=== PATIENT | male | born 1950 | race African-American/Black ===

== ENCOUNTER → 2018-12-08 | Day surgery (SDC) | payer MEDICARE ==
--- NOTE | 2018-12-01 11:15 | Diagnostic Imaging Report ---
EXAMINATION: CHEST 2 VIEWS INDICATION: Pre-operative COMPARISON: None FINDINGS: LINES/TUBES:None LUNGS:The lungs are well-inflated. No focal consolidation or pulmonary edema. PLEURA:No pleural effusion or pneumothorax. MEDIASTINUM:The cardiomediastinal silhouette appears normal in size and shape. Atherosclerotic calcifications of the thoracic aorta. BONES/SOFT TISSUES:No acute osseous injury. ABDOMEN:No free air under the diaphragm. IMPRESSION: No focal pneumonia or pulmonary edema. Signed by: Ewa Desai MD on 12/01/2018 11:11 AM
[2018-12-01 11:37] LABS: BASOPHILS % 0.2 % (0.0-1.0); EOSINOPHILS # (AUTO) 0.1 (0.0-0.4); EOSINOPHILS % 1.3 % (0.0-6.0); HEMATOCRIT 37.4 % (38.2-49.6); HEMOGLOBIN 12.5 g/dL (14.0-18.0); LYMPHOCYTES # (AUTO) 1.9 (1.0-3.2); LYMPHOCYTES % 40.8 % (18.0-39.1); MEAN CORPUSCULAR HEMOGLOBIN 30.6 pg (28-32); MEAN CORPUSCULAR HGB CONC 33.4 g/dL (31-35); MEAN CORPUSCULAR VOLUME 91.7 fL (81-99); MONOCYTES # (AUTO) 0.5 (0.2-0.8); MONOCYTES % 10.4 % (4.4-11.3); NEUTROPHILS # (AUTO) 2.2 (2.1-6.9); NEUTROPHILS % 46.9 % (38.7-80.0); PLATELET COUNT 222 x10e3/uL (140-360); RED BLOOD COUNT 4.08 x10e6/uL (4.3-5.7); RED CELL DISTRIBUTION WIDTH 14.2 % (11.7-14.4)
[2018-12-01 11:51] LABS: INR 0.89; PROTHROMBIN TIME 12.5 seconds (11.9-14.5)
[2018-12-01 12:00] LABS: BLOOD UREA NITROGEN 17 mg/dL (7-26); BUN/CREATININE RATIO 15 (6-25); CALCIUM 9.7 mg/dL (8.4-10.2); CARBON DIOXIDE 23 mmol/L (22-29); CHLORIDE 103 mmol/L (98-107); CREATININE, SERUM 1.17 mg/dL (0.72-1.25); EST GLOMERULAR FILTRATION RATE > 60 ML/MIN (60-); GLUCOSE 93 mg/dL (74-118); SODIUM 138 mmol/L (136-145)
[~2018-12-08] MED LIST: ATORVASTATIN CA20 MG PO; BENADRYL25 M1; DEXAMETHASONE SOD PHOS INJ 4 MG/ML VIAL ONE; FENTANYL CITRATE/PF 100MCG/2 ML INJ ONE; HYDROXYZINE HCL25 MG PO; HYOSCYAMINE 0.125 MG TAB ONE; LEVOFLOXACIN 500MG/D5W 100ML 100 ML IV ONE; LIDOCAINE HCL 2% LOCAL INJ 5 ML SDV VIAL INJ ONE; LISINOPRIL-HCT1 EACH PO; MIDAZOLAM HCL 2 MG/2 ML VIAL ONE; ONDANSETRON HCL INJ 2MG/ML 2ML 2 MG/ML VIAL ONE; OXYBUTYNIN CHLOR5 M1 PO; PROPOFOL IV EMULSION 10 MG/ML 20 ML VIAL ONE; SEVOFLURANE INHAL SOLN 250 ML PEN BTL ONE; VERAPAMIL ER180 MG PO
--- OUTSIDE RECORDS SUMMARY | 2018-12-08 09:45 | XMS REPORT ---
Author Author [facility] Address Unknown Phone Unavailable Care Team Providers Care Electrical Intern Name Role Phone Hayden MARTIN Unavailable Unavailable Problems This patient has no known problems. Allergies, Adverse Reactions, Alerts This patient has no known allergies or adverse reactions. Medications This patient has no known medications. Results Test Description Test Time Test Comments Text Results Atomic Results Result Comments CHEST 2 VIEWS 2018-12-01 11:09:00 [place] [address] Patient Name: ALVERTO CORTÉS JR MR #: [id number] : 1950 Age/Sex: 68/M Req #: [id number] Adm Physician: Ordered by: NATE MARTIN MD Report #: [id number] Location: OR Room/Bed: Procedure: [id number] DX/CHEST 2 VIEWS Exam Date: 12/01/18 Exam Time: 1040 REPORT STATUS: Signed EXAMINATION: CHEST 2 VIEWS INDICATION: Pre-operative COMPARISON: None FINDINGS: LINES/TUBES:None LUNGS:The lungs are well-inflated. No focal consolidation or pulmonary edema. PLEURA:No pleural effusion or pneumothorax. MEDIASTINUM:The cardiomediastinal silhouette appears normal in size and shape. Atherosclerotic calcifications of the thoracic aorta. BONES/SOFT TISSUES:No acute osseous injury. ABDOMEN:No free air under the diaphragm. IMPRESSION: No focal pneumonia or pulmonary edema. Signed by: Tello Desai MD on 12/01/2018 11:11 AM Dictated By: TELLO DESAI MD 1111 Transcribed By: CLIFFORD on 12/01/18 1111 COPY TO: NATE MARTIN MD
--- OUTSIDE RECORDS SUMMARY | 2018-12-08 09:45 | XMS REPORT | Clinical Summary ---
Author Author [facility] Address Unknown Phone Unavailable Care Team Providers Care [place] Technician Name Role Phone Valerio Taylor MD PCP Allergies No Known Allergies Medications End Date Status Medication Sig Dispensed Refills Start Date Active LISINOPRIL-HCTZ 20-12.5 0 MG COMBO DOSE Active verapamil sustained Take 180 mg 0 release (CALAN-SR) 180 MG by mouth SR tablet nightly. 2019 Active atorvastatin (LIPITOR) 80 Take 1 tablet 30 tablet 11 201 MG tablet (80 mg total) 8 by mouth daily. Active Problems Not on file Encounters Care Team Description Date Type Specialty Elaine Alexandre MD Other specified transient cerebral ischemias (Primary Dx); Other hyperlipidemia 2018 Office Visit Neurology Elaine Alexandre MD Transient cerebral ischemia, unspecified type; Diplopia; Weakness 12/10/2017 Hospital Radiology Encounter after 12/07/2017 Family History Relation Name Status Comments Father Mother Social History Date Tobacco Use Types Packs/Day Years Used Current Every Day Smoker Smokeless Tobacco: Never Used Alcohol Use Drinks/Week oz/Week Comments No Sex Assigned at Date Recorded Not on file Industry Job Start Date Occupation Not on file Not on file Not on file Travel End Travel History Travel Start No recent travel history available. Last Filed Vital Signs Time Taken Vital Sign Reading 2018 1:34 PM CDT Blood Pressure 131/86 2018 1:34 PM CDT Pulse 70 2018 1:34 PM CDT Temperature 36.6 C (97.8 F) 2018 1:34 PM CDT Respiratory Rate 20 - Oxygen Saturation - - Inhaled Oxygen - Concentration 2018 1:34 PM CDT Weight 102 kg (224 lb 8 oz) 2018 1:34 PM CDT Height 180.3 cm (5' 11") 2018 1:34 PM CDT Body Mass Index 31.31 Plan of Treatment Health Maintenance Due Date Last Done Comments COLONOSCOPY SCREENING 01/05/1998 SHINGLES VACCINES (#1) 01/05/1998 65+ PNEUMOCOCCAL VACCINE 01/05/2013 (1 of 2 - PCV13) INFLUENZA VACCINE 12/02/2018 Procedures Comments Procedure Name Priority Date/Time Associated Diagnosis MRA HEAD WO CONTRAST Routine 12/10/2017 Transient cerebral 9:44 AM CDT ischemia, unspecified type Diplopia Weakness after 12/07/2017 Results * MRA Head Wo Contrast (12/10/2017 9:44 AM CDT) Specimen Narrative Performed At [facility] EXAMINATION: MRA HEAD WO CONTRAST CLINICAL HISTORY: G45.9 Transient cerebral ischemic attackunspecified, H53.2 Diplopia, Facial weaknessrule out CVA COMPARISON:None TECHNIQUE: [id number] MRA images of the [place] vessels were obtained with multiplanar and 3-D reconstructive algorithms. FINDINGS: Assessment of individual intracranial arteries demonstrate the following: Anterior circulation: - Intracranial right ICA: Atherosclerotic irregularities. There is no hemodynamically significant stenosis or aneurysm. - Right middle cerebral artery: Atherosclerotic irregularities. There is no hemodynamically significant stenosis or aneurysm. - Right anterior cerebral artery: There is no hemodynamically significant stenosis or aneurysm. - Intracranial left ICA: Atherosclerotic irregularities. There is no hemodynamically significant stenosis or aneurysm. - Left middle cerebral artery: Atherosclerotic irregularities. There is no hemodynamically significant stenosis or aneurysm. - Left anterior cerebral artery:There is no hemodynamically significant stenosis or aneurysm. Posterior circulation: - Basilar artery: There is no hemodynamically significant stenosis or aneurysm. - Right GENERAL REPAIRER: Atherosclerotic irregularities. Patent. - Left GENERAL REPAIRER: Atherosclerotic irregularities. Patent. - Bilateral superior cerebral arteries: There is no hemodynamically significant stenosis or aneurysm . - Bilateral anterior inferior cerebellar arteries: Patent.There is no hemodynamically significant stenosis or aneurysm. - Bilateral PICAs: Partially visualized and patent. - Intradural segment of the vertebral arteries:There is no hemodynamically significant stenosis or aneurysm. IMPRESSION: 1. Atherosclerotic irregularities of intracranial arteries. 2. There is no evidence of intracranial flow-limiting stenosis, occlusion, aneurysm or dissection. [id number] Procedure Note Hm Interface, Radiology Results Incoming - 12/10/2017 10:00 AM CDT EXAMINATION: MRA HEAD WO CONTRAST CLINICAL HISTORY: G45.9 Transient cerebral ischemic attack unspecified, H53.2 Diplopia, Facial weakness rule out CVA COMPARISON: None TECHNIQUE: [id number] MRA images of the [place] vessels were obtained with multiplanar and 3-D reconstructive algorithms. FINDINGS: Assessment of individual intracranial arteries demonstrate the following: Anterior circulation: - Intracranial right ICA: Atherosclerotic irregularities. There is no hemodynamically significant stenosis or aneurysm. - Right middle cerebral artery: Atherosclerotic irregularities. There is no hemodynamically significant stenosis or aneurysm. - Right anterior cerebral artery: There is no hemodynamically significant stenosis or aneurysm. - Intracranial left ICA: Atherosclerotic irregularities. There is no hemodynamically significant stenosis or aneurysm. - Left middle cerebral artery: Atherosclerotic irregularities. There is no hemodynamically significant stenosis or aneurysm. - Left anterior cerebral artery:There is no hemodynamically significant stenosis or aneurysm. Posterior circulation: - Basilar artery: There is no hemodynamically significant stenosis or aneurysm. - Right GENERAL REPAIRER: Atherosclerotic irregularities. Patent. - Left GENERAL REPAIRER: Atherosclerotic irregularities. Patent. - Bilateral superior cerebral arteries: There is no hemodynamically significant stenosis or aneurysm . - Bilateral anterior inferior cerebellar arteries: Patent.There is no hemodynamically significant stenosis or aneurysm. - Bilateral PICAs: Partially visualized and patent. - Intradural segment of the vertebral arteries:There is no hemodynamically significant stenosis or aneurysm. IMPRESSION: 1. Atherosclerotic irregularities of intracranial arteries. 2. There is no evidence of intracranial flow-limiting stenosis, occlusion, aneurysm or dissection. [id number] Performing Organization Address City/State/Zipcode Phone Number [facility] [address] [place] [address] after 12/07/2017 Insurance Type Payer Benefit Subscriber ID Effective Phone Address Plan / Dates Group Medicare MEDICARE MEDICARE xxxxxxxxxx 2013-P GAY, PART A AND resent [place] B Medicaid MEDICAID MEDICAID xxxxxxxxx 2016-P resent Advance Directives Patient has advance care planning documents on file. For more information, laci rendon contact: Anthony Tomlin [address] [place] [address]
[2018-12-08 13:10] VITALS: BP 117/80
--- NOTE | 2018-12-08 15:10 | Operative Report ---
DATE OF PROCEDURE: 12/08/2018 SURGEON: Anurag Haley MD PREOPERATIVE DIAGNOSES: 1. Adenocarcinoma of the prostate. 2. Recurrent prostatic obstruction. 3. Bladder neck contraction. POSTOPERATIVE DIAGNOSES: 1. Adenocarcinoma of the prostate. 2. Recurrent prostatic obstruction. 3. Bladder neck contraction. OPERATIONS: 1. Cystourethroscopy. 2. TURP laser XPS. ANESTHETIC: General. INDICATIONS FOR PROCEDURE: Mr. Weber is a 68-year-old male who is very well known to me with a history of carcinoma of the prostate. Lately, he presented with increasing lower urinary tract obstruction and cystourethroscopy performed showed recurrent prostatic obstruction and bladder neck contraction. This patient was placed on the table in the lithotomy position and was prepped and draped in a sterile manner after satisfactory anesthesia, A #23 cystoresectoscope was used and cystourethroscopy was performed and it was noted that the urethra was normal. There was some tightness around the level of the proximal bulbous urethra but this was negotiated and I was able to go through the prostatic urethra where there was a recurrent prostatic tissue and the bladder neck was showing bladder neck contractions. The XPS laser scope generator was then started starting at 120 mullen vaporization level and 40 mullen coagulation level. The laser scope fiber was then passed through the working channel of the cystoresectoscope to the level of the bladder neck and 2 incisions using the laser were made at the 4 and 8 o' clock positions which snap the bladder neck open. Cystoscopy was unremarkable. The recurrent prostatic tissue all around was then vaporized and hemostasis was obtained and was very adequate. At the termination of the procedure, it was noted that the bladder mucosa, both ureteral orifices and the external sphincter were intact without laser energy damage. Laser scope generator was shut down. The cystoresectoscope was removed and a #22 [place] Corea catheter was placed. Estimated blood loss was less than 5 mL. Plans for this patient is to be started on Cipro 500 mg 1 twice a day for 1 week. Ultracet tablet 1 every 6 to 8 hours p.r.n. and was given 30. He is to return to the office in 1 day when the Corea catheter will be removed. Anurag Haley MD MA/TAMERA /[id number]
== END | disposition home or self-care (01) ==
LOC: OR 09:37
PROVIDERS: ATTEND Specialist
DX: C61 Malignant neoplasm of prostate (principal); N40.1 Benign prostatic hyperplasia with lower urinary tract symptoms; N13.8 Other obstructive and reflux uropathy; Z01.810 Encounter for preprocedural cardiovascular examination; Z01.812 Encounter for preprocedural laboratory examination; Z01.811 Encounter for preprocedural respiratory examination; Z91.013 Allergy to seafood
CPT/HCPCS: 36415; 52648; 71046; 80048; 85025; 85610; 93005; J1100; J1956; J2001; J2250; J2405; J2704; J3010